=== PATIENT | female | born 1955 | race Two or more races ===

== ENCOUNTER 2025-01-31 12:41 | Outpatient (CLI) | payer OTHER | END 2025-01-31 12:59 | disposition home or self-care (01) | LOC: MAMO-SONO 12:41 | PROVIDERS: ATTEND Family Medicine | DX: N60.29 Fibroadenosis of unspecified breast (principal); N63.0 Unspecified lump in unspecified breast; Z12.31 Encounter for screening mammogram for malignant neoplasm of breast ==

== ENCOUNTER 2025-04-01 12:42 | Outpatient (CLI) | payer OTHER | END 2025-04-01 13:00 | disposition home or self-care (01) | LOC: MAMO-SONO 12:42 | PROVIDERS: ATTEND Surgery | DX: D24.2 Benign neoplasm of left breast (principal); N60.11 Diffuse cystic mastopathy of right breast; N60.12 Diffuse cystic mastopathy of left breast ==

== ENCOUNTER 2025-09-13 11:29 | Outpatient (CLI) | payer OTHER | END 2025-09-13 11:45 | disposition home or self-care (01) | LOC: SONOGRAMA 11:29 | PROVIDERS: ATTEND Surgery | DX: N60.11 Diffuse cystic mastopathy of right breast (principal); N60.12 Diffuse cystic mastopathy of left breast ==

== ENCOUNTER 2025-10-28 09:44 | Outpatient (CLI) | payer OTHER | END 2025-10-28 09:45 | disposition home or self-care (01) | LOC: NUCLEAR 09:44 | DX: M81.0 Age-related osteoporosis without current pathological fracture (principal) ==